=== PATIENT | male | born 1995 | race American Indian/Alaskan Native ===

== ENCOUNTER 2017-09-17 19:46 | Emergency (ER) | payer MEDICAID, OTHER ==
[2017-09-17 21:02] LABS: Basophils # (Auto) 0.1 K/mm3 (0.0-0.1); Basophils % (Auto) 0.8 % (0.0-1.8); Eosinophils # (Auto) 0.1 K/mm3 (0.0-0.4); Eosinophils % (Auto) 1.7 % (0.0-4.3); Hematocrit 39.2 % (35.5-45.6); Hemoglobin 12.9 gm/dl (11.8-15.2); Lymphocytes # (Auto) 2.1 K/mm3 (1.2-5.4); Lymphocytes % (Auto) 26.2 % (13.4-35.0); Mean Corpuscular HGB Conc 33 % (32-34); Mean Corpuscular Hemoglobin 29 pg (28-32); Mean Corpuscular Volume 88 fl (84-94); Monocytes # (Auto) 0.6 K/mm3 (0.0-0.8); Platelet Count 228 K/mm3 (140-440); Red Blood Count 4.44 M/mm3 (3.65-5.03)
[2017-09-17 21:26] LABS: Alanine Aminotransferase 11 units/L (7-56); Albumin 4.2 g/dL (3.9-5); BUN/Creatinine Ratio 9; Blood Urea Nitrogen 7 mg/dL (9-20); Calcium 8.8 mg/dL (8.4-10.2); Hemolysis Index 11
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
[2017-09-17 21:59] LABS: Bilirubin,Urine NEG (Negative); Blood,Urine SM (Negative); Color,Urine Yellow (Yellow); Protein,Urine <15 mg/dL mg/dL (Negative); RBC,Urine < 1.0 /HPF (0.0-6.0); Urobilinogen,Urine < 2.0 mg/dL (<2.0); WBC,Urine < 1.0 /HPF (0.0-6.0)
[2017-09-17 22:16] LABS: Amphetamine Screen,Urine PRESUMPTIVE NEGATIVE; Benzodiazepines Screen,Urine PRESUMPTIVE NEGATIVE; Cocaine Screen,Urine PRESUMPTIVE NEGATIVE; Methadone Screen,Urine PRESUMPTIVE NEGATIVE; Opiate Screen,Urine PRESUMPTIVE NEGATIVE
[2017-09-17 22:40] LABS: Cannabinoid Screen,Urine PRESUMPTIVE POSITIVE
--- NOTE | 2017-09-18 00:12 | Cat Scan Report ---
FINAL REPORT PROCEDURE: CT HEAD/BRAIN WO CON TECHNIQUE: Computerized tomography of the head was performed without contrast material. HISTORY: headache COMPARISON: No prior studies are available for comparison. FINDINGS: Skull and scalp: Normal. Paranasal sinuses: Slight opacification of the ethmoid sinuses. Ventricles and subarachnoid spaces: Normal. Cerebrum: No evidence of hemorrhage, acute infarction or mass . Cerebellum and brainstem: No evidence of hemorrhage, acute infarction or mass. Vasculature: Normal. Comments: None. IMPRESSION: There is no evidence of an acute intracranial process. Minimal sinusitis
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
[2017-09-18] MEDS: RisperDAL PO SCH (23:26)
--- NOTE | 2017-09-19 12:06 | Progress Note ---
Subjective - Reason for Consult Consult date: 09/19/17 Reason for consult: Psychiatry Follow-up - Chief Complaint Chief complaint: "What " 22 year old BM who presents to [facility]- we've been asked to see him for a mental health eval. Today the patient is calm, but disorganized during the assessment. He could not say why he was brought to the ER. He denies exposing himself per the record. He is smiling intermittently and pacing during the interview, possibly responding to some type of stimuli. He denies SI/HI's and AVH's. He denies any side effects of his medication. Mental Status Exam - Vital signs Last Vital Signs Temp 98.3 F 09/19/17 10:46 Pulse 103 H 09/19/17 10:46 Resp 16 09/19/17 10:46 BP 117/69 09/19/17 10:46 Pulse Ox 98 09/19/17 10:46 - Exam Narrative exam: MSE: Appearance: calm, disheveled Behavior: regular eye contact Speech: regular rate and tone Mood: "okay" Affect: congruent to mood Thought Process: not logical Thought Content: denies SI/HI's and AVH's Motor Activity: pacing Cognition: A/O x3 Insight: poor Judgment: poor Assessment and Plan Impression: Schizophrenia. Cannabis Use DO. Today the patient is calm, but disorganized during the assessment. The patient is experiencing perceptual disturbances. DDx: R/O Bipolar Do, R/O Substance Induced Psychosis Recommendation/Plan: Continue 1013 with placement to inpatient psy services. Continue Risperdal 1 mg PO HS for psychosis. Discussed possible metabolic side effects with patient reference Risperdal.
[2017-09-19 20:32] VITALS: BP 108/71
== END 2017-09-19 20:41 ==
LOC: ED 19:46 → EEVIPCON 19:46 → ED 09-19 20:41
DX: F23 Brief psychotic disorder (principal); F31.9 Bipolar disorder, unspecified; F17.200 Nicotine dependence, unspecified, uncomplicated; Z79.899 Other long term (current) drug therapy
CPT/HCPCS: 36415; 70450; 80053; 80307; 81001; 82140; 84443; 84484; 85025; 99285; G0480; 80320

== ENCOUNTER 2017-11-29 11:25 | Emergency (ER) | payer SELFPAY ==
[2017-11-29 12:01] LABS: Eosinophils # (Auto) 0.1 K/mm3 (0.0-0.4); Eosinophils % (Auto) 1.1 % (0.0-4.3); Hematocrit 43.9 % (35.5-45.6); Hemoglobin 14.5 gm/dl (11.8-15.2); Lymphocytes # (Auto) 1.4 K/mm3 (1.2-5.4); Lymphocytes % (Auto) 31.9 % (13.4-35.0); Mean Corpuscular HGB Conc 33 % (32-34); Mean Corpuscular Hemoglobin 30 pg (28-32); Mean Corpuscular Volume 89 fl (84-94); Monocytes # (Auto) 0.5 K/mm3 (0.0-0.8); Monocytes % (Auto) 10.1 % (0.0-7.3); Platelet Count 242 K/mm3 (140-440); Red Blood Count 4.93 M/mm3 (3.65-5.03); Red Cell Distribution Width 14.4 % (13.2-15.2)
[2017-11-29 12:10] LABS: BUN/Creatinine Ratio 7; Blood Urea Nitrogen 8 mg/dL (9-20); Calcium 8.9 mg/dL (8.4-10.2); Hemolysis Index 3
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
[2017-11-29 12:49] LABS: Bilirubin,Urine NEG (Negative); Blood,Urine NEG (Negative); Color,Urine Yellow (Yellow); Protein,Urine <15 mg/dL mg/dL (Negative); Urobilinogen,Urine < 2.0 mg/dL (<2.0)
[2017-11-29 12:50] LABS: WBC,Urine < 1.0 /HPF (0.0-6.0)
[2017-11-29 12:57] LABS: Amphetamine Screen,Urine PRESUMPTIVE NEGATIVE; Benzodiazepines Screen,Urine PRESUMPTIVE NEGATIVE; Cocaine Screen,Urine PRESUMPTIVE NEGATIVE; Methadone Screen,Urine PRESUMPTIVE NEGATIVE; Opiate Screen,Urine PRESUMPTIVE NEGATIVE
[2017-11-29 13:17] LABS: Cannabinoid Screen,Urine PRESUMPTIVE POSITIVE
[2017-11-29] MEDS ORDERED: ALUM-MAG HYDROX-SIMETH 200-200-20MG/5ML PO PRN (19:46)
[2017-11-29] MEDS ORDERED: TYLENOL PO PRN (19:46)
[2017-11-29] MEDS ORDERED: MILK OF MAGNESIA PO PRN (19:46)
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
[2017-11-30] MEDS: COGENTIN PO SCH (22:15)
[2017-11-30] MEDS: RisperDAL PO SCH (23:06)
[2017-12-01] MEDS: RisperDAL PO SCH (22:29)
[2017-12-01] MEDS: COGENTIN PO SCH (22:30)
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
[2017-12-02] MEDS ORDERED: HALDOL ONE (16:29)
[2017-12-02] MEDS ORDERED: HALDOL IM ONE (16:31)
[2017-12-02] MEDS: RisperDAL PO SCH (22:00)
[2017-12-02] MEDS: COGENTIN PO SCH (22:19)
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
[2017-12-03] MEDS: COGENTIN PO SCH (22:13)
[2017-12-03] MEDS: RisperDAL PO SCH (22:13)
[2017-12-04 11:13] VITALS: BP 103/64
== END 2017-12-04 11:45 ==
LOC: EEVIPCON 11:25 → ED 11:25
DX: F20.0 Paranoid schizophrenia (principal); F17.200 Nicotine dependence, unspecified, uncomplicated; F12.10 Cannabis abuse, uncomplicated; Z79.899 Other long term (current) drug therapy
CPT/HCPCS: 36415; 80048; 80307; 81001; 85025; 96372; 99285; G0480; J1630; 80320

== ENCOUNTER 2018-01-13 19:28 | Emergency (ER) | payer SELFPAY ==
[2018-01-13 19:36] VITALS: BP 113/67
[2018-01-13 20:24] LABS: Basophils % (Auto) 0.7 % (0.0-1.8); Eosinophils # (Auto) 0.2 K/mm3 (0.0-0.4); Eosinophils % (Auto) 3.3 % (0.0-4.3); Hematocrit 40.8 % (35.5-45.6); Hemoglobin 14.4 gm/dl (11.8-15.2); Lymphocytes # (Auto) 1.8 K/mm3 (1.2-5.4); Lymphocytes % (Auto) 39.6 % (13.4-35.0); Mean Corpuscular HGB Conc 35 % (32-34); Mean Corpuscular Hemoglobin 31 pg (28-32); Mean Corpuscular Volume 88 fl (84-94); Monocytes # (Auto) 0.5 K/mm3 (0.0-0.8); Monocytes % (Auto) 11.2 % (0.0-7.3); Platelet Count 209 K/mm3 (140-440); Red Blood Count 4.66 M/mm3 (3.65-5.03)
[2018-01-13 20:37] LABS: BUN/Creatinine Ratio 9; Blood Urea Nitrogen 11 mg/dL (9-20); Calcium 9.3 mg/dL (8.4-10.2); Hemolysis Index 10
[2018-01-13 23:14] LABS: Bilirubin,Urine NEG (Negative); Blood,Urine NEG (Negative); Calcium Oxalate Crystals,Urine 3+; Color,Urine Yellow (Yellow); Mucus,Urine 1+ /HPF; WBC,Urine < 1.0 /HPF (0.0-6.0)
[2018-01-13 23:24] LABS: Benzodiazepines Screen,Urine PRESUMPTIVE NEGATIVE; Cannabinoid Screen,Urine PRESUMPTIVE NEGATIVE; Cocaine Screen,Urine PRESUMPTIVE NEGATIVE; Methadone Screen,Urine PRESUMPTIVE NEGATIVE; Opiate Screen,Urine PRESUMPTIVE NEGATIVE
[2018-01-13 23:37] LABS: Amphetamine Screen,Urine PRESUMPTIVE POSITIVE
== END 2018-01-14 01:00 | disposition left against medical advice (07) ==
LOC: ED 19:28
DX: F20.9 Schizophrenia, unspecified (principal); Z79.899 Other long term (current) drug therapy; Z53.21 Procedure and treatment not carried out due to patient leaving prior to being seen by health care provider
CPT/HCPCS: 36415; 80048; 80307; 81001; 85025; G0480; 80320

== ENCOUNTER 2018-01-16 11:18 | Emergency (ER) | payer SELFPAY ==
[2018-01-16 11:52] LABS: Hematocrit 43.3 % (35.5-45.6); Hemoglobin 14.9 gm/dl (11.8-15.2); Mean Corpuscular HGB Conc 34 % (32-34); Mean Corpuscular Hemoglobin 30 pg (28-32); Mean Corpuscular Volume 88 fl (84-94); Platelet Count 220 K/mm3 (140-440); Red Blood Count 4.93 M/mm3 (3.65-5.03); Red Cell Distribution Width 13.6 % (13.2-15.2)
[2018-01-16 11:55] LABS: Bilirubin,Urine NEG (Negative); Blood,Urine NEG (Negative); Color,Urine Yellow (Yellow); Mucus,Urine 1+ /HPF; Protein,Urine <15 mg/dL mg/dL (Negative); WBC,Urine < 1.0 /HPF (0.0-6.0)
[2018-01-16 12:00] LABS: Lymphocytes % (Auto) 25.6 % (13.4-35.0); Monocytes % (Auto) 8.4 % (0.0-7.3)
[2018-01-16 12:01] LABS: Basophils % (Auto) 0.4 % (0.0-1.8); Eosinophils # (Auto) 0.1 K/mm3 (0.0-0.4); Eosinophils % (Auto) 1.4 % (0.0-4.3); Lymphocytes # (Auto) 1.2 K/mm3 (1.2-5.4); Monocytes # (Auto) 0.4 K/mm3 (0.0-0.8)
[2018-01-16 12:04] LABS: Amphetamine Screen,Urine PRESUMPTIVE NEGATIVE; Benzodiazepines Screen,Urine PRESUMPTIVE NEGATIVE; Cocaine Screen,Urine PRESUMPTIVE NEGATIVE; Methadone Screen,Urine PRESUMPTIVE NEGATIVE; Opiate Screen,Urine PRESUMPTIVE NEGATIVE
[2018-01-16 12:08] LABS: BUN/Creatinine Ratio 9; Blood Urea Nitrogen 10 mg/dL (9-20); Calcium 9.3 mg/dL (8.4-10.2); Hemolysis Index 12
[2018-01-16 12:19] LABS: Cannabinoid Screen,Urine PRESUMPTIVE POSITIVE
[2018-01-16] MEDS ORDERED: BENADRYL ONE (15:42)
[2018-01-16] MEDS ORDERED: PEPCID IV ONE ×2 (15:43→15:56)
[2018-01-16] MEDS ORDERED: DECADRON ONE (15:43)
[2018-01-16] MEDS ORDERED: BENADRYL IV ONE ×2 (15:56→18:38)
[2018-01-16] MEDS ORDERED: DECADRON IV ONE ×2 (15:56→18:38)
--- NOTE | 2018-01-16 19:08 | Emergency Department Report ---
ED Psych HPI - General Chief Complaint: Psych Stated Complaint: ELIZABETH EVEMILIA Time Seen by Provider: 01/16/18 15:48 Source: patient Mode of arrival: Ambulatory - History of Present Illness Initial Comments: This is a 22-year-old male with previous disposition to [facility] in November from here. Per the psychiatric nurse specialist: Impression: Schizophrenia, Paranoid Type. Cannabis Use DO. Today the patient is calm during the assessment. The patient minimized his actions. DDx: R/O Bipolar DO with psychosis, R/O Substance Induced Psychosis Today he again is brought here by his mother. His mother states that she found him hovering over her. He has been threatening siblings. He has been acting paranoid. In addition he has the onset of unexplained urticaria today. He is not on any new medications. He's not had any unusual foods. He has not had this problem prior. Patient himself is poorly communicative. He denies any difficulty in breathing. He is itching secondary to his hives. He cannot tell me if he has a precipitating agent. He does not really want to answer questions and is withdrawn. History of same: Yes Quality: intermittent - Related Data Home Medications Medication Instructions Recorded Confirmed Last Taken No Known Home Medications [No 09/18/17 11/29/17 Unknown Reported Home Medications] Allergies Allergy/AdvReac Type Severity Reaction Status Date / Time No Known Allergies Allergy Verified 11/29/17 11:31 ED Review of Systems ROS: Stated complaint: ELIZABETH JACOBO Other details as noted in HPI Comment: Unobtainable due to pts medical conditions (but the patient has no active complaints other than itching) ED Past Medical Hx - Past Medical History Hx Psychiatric Treatment: Yes Additional medical history: schziophrenia - Surgical History Past Surgical History?: No - Social History Smoking Status: Current Every Day Smoker Substance Use Type: None - Medications Home Medications: Home Medications Medication Instructions Recorded Confirmed Last Taken Type No Known Home Medications [No 09/18/17 11/29/17 Unknown History Reported Home Medications] ED Physical Exam - General Limitations: No Limitations General appearance: alert, in no apparent distress - Head Head exam: Present: atraumatic, normocephalic - Eye Eye exam: Present: normal appearance, PERRL, EOMI. Absent: scleral icterus - ENT ENT exam: Present: normal exam, normal orophraynx (no evidence of airway edema) , mucous membranes moist, other (periorbital edema) - Neck Neck exam: Present: normal inspection. Absent: tenderness, meningismus - Respiratory Respiratory exam: Present: normal lung sounds bilaterally. Absent: respiratory distress - Cardiovascular Cardiovascular Exam: Present: regular rate, normal rhythm. Absent: systolic murmur, diastolic murmur, rubs, gallop - GI/Abdominal GI/Abdominal exam: Present: soft, normal bowel sounds. Absent: distended, tenderness, guarding, rebound, rigid - Rectal Rectal exam: Present: deferred - Extremities Exam Extremities exam: Present: normal inspection - Back Exam Back exam: Present: normal inspection - Neurological Exam Neurological exam: Present: alert, oriented X3, CN II-XII intact. Absent: motor sensory deficit - Psychiatric Psychiatric exam: Present: normal mood, flat affect - Skin Skin exam: Present: warm, dry, intact, other (diffuse urticaria and periorbital edema. No facial edema no neck edema). Absent: rash ED Course Vital Signs 01/16/18 11:22 Temperature 98.4 F Pulse Rate 99 H Respiratory 15 Rate Blood Pressure 100/66 O2 Sat by Pulse 96 Oximetry - Reevaluation(s) Reevaluation #1: Patient was given Decadron Pepcid and Benadryl. He was observed. He never developed any signs of airway edema. However, his hives were persistent. He was given a note her dose of Decadron and Pepcid. He will be continued on oral medications after this. I will check on him presumably tomorrow unless urticaria resolved today. He is being evaluated by mental health for psychiatric placement. I will sign a 1013 form now. 01/16/18 19:02 ED Medical Decision Making - Lab Data Result diagrams: 01/16/18 11:39 01/16/18 11:39 Laboratory Results - last 24 hr 01/16/18 01/16/18 01/16/18 11:36 11:39 11:39 WBC RBC Hgb Hct MCV MCH MCHC RDW Plt Count Lymph % (Auto) Alger % (Auto) Eos % (Auto) Baso % (Auto) Lymph # Alger # Eos # Baso # Seg Neutrophils % Seg Neutrophils # Sodium Potassium Chloride Carbon Dioxide Anion Gap BUN Creatinine Estimated GFR BUN/Creatinine Ratio Glucose Calcium Urine Color Yellow Urine Turbidity Clear Urine pH 5.0 Ur Specific [place] 1.019 Urine Protein <15 mg/dl Urine Glucose (UA) Neg Urine Ketones Neg Urine Blood Neg Urine Nitrite Neg Urine Bilirubin Neg Urine Urobilinogen 2.0 Ur Leukocyte Esterase Neg Urine WBC (Auto) < 1.0 Urine RBC (Auto) 2.0 Urine Mucus 1+ Salicylates 2.3 L Urine Opiates Screen Presumptive negative Urine Methadone Screen Presumptive negative Acetaminophen Ur Barbiturates Screen Presumptive negative Ur Phencyclidine Scrn Presumptive negative Ur Amphetamines Screen Presumptive negative U Benzodiazepines Scrn Presumptive negative Urine Cocaine Screen Presumptive negative U Marijuana (THC) Screen Presumptive positive Drugs of Abuse Note Disclamer Plasma/Serum Alcohol 01/16/18 01/16/18 01/16/18 11:39 11:39 11:39 WBC RBC Hgb Hct MCV MCH MCHC RDW Plt Count Lymph % (Auto) Alger % (Auto) Eos % (Auto) Baso % (Auto) Lymph # Alger # Eos # Baso # Seg Neutrophils % Seg Neutrophils # Sodium 140 Potassium 4.1 Chloride 99.9 Carbon Dioxide 28 Anion Gap 16 BUN 10 Creatinine 1.1 Estimated GFR > 60 BUN/Creatinine Ratio 9 Glucose 133 H Calcium 9.3 Urine Color Urine Turbidity Urine pH Ur Specific [place] Urine Protein Urine Glucose (UA) Urine Ketones Urine Blood Urine Nitrite Urine Bilirubin Urine Urobilinogen Ur Leukocyte Esterase Urine WBC (Auto) Urine RBC (Auto) Urine Mucus Salicylates Urine Opiates Screen Urine Methadone Screen Acetaminophen < 5.0 L Ur Barbiturates Screen Ur Phencyclidine Scrn Ur Amphetamines Screen U Benzodiazepines Scrn Urine Cocaine Screen U Marijuana (THC) Screen Drugs of Abuse Note Plasma/Serum Alcohol < 0.01 01/16/18 11:39 WBC 4.7 RBC 4.93 Hgb 14.9 Hct 43.3 MCV 88 MCH 30 MCHC 34 RDW 13.6 Plt Count 220 Lymph % (Auto) 25.6 Alger % (Auto) 8.4 H Eos % (Auto) 1.4 Baso % (Auto) 0.4 Lymph # 1.2 Alger # 0.4 Eos # 0.1 Baso # 0.0 Seg Neutrophils % 64.2 Seg Neutrophils # 3.0 Sodium Potassium Chloride Carbon Dioxide Anion Gap BUN Creatinine Estimated GFR BUN/Creatinine Ratio Glucose Calcium Urine Color Urine Turbidity Urine pH Ur Specific [place] Urine Protein Urine Glucose (UA) Urine Ketones Urine Blood Urine Nitrite Urine Bilirubin Urine Urobilinogen Ur Leukocyte Esterase Urine WBC (Auto) Urine RBC (Auto) Urine Mucus Salicylates Urine Opiates Screen Urine Methadone Screen Acetaminophen Ur Barbiturates Screen Ur Phencyclidine Scrn Ur Amphetamines Screen U Benzodiazepines Scrn Urine Cocaine Screen U Marijuana (THC) Screen Drugs of Abuse Note Plasma/Serum Alcohol Critical care attestation.: If time is entered above; I have spent that time in minutes in the direct care of this critically ill patient, excluding procedure time. ED Disposition Clinical Impression: Acute psychosis, Urticaria Disposition: DC/TX-65 PSY HOSP/PSY UNIT Is pt being admited?: No Does the pt Need Aspirin: No Condition: Stable Referrals: PRIMARY CARE, [Primary Care Provider] - 3-5 Days Time of Disposition: 19:08
[2018-01-16] MEDS ORDERED: ALUM-MAG HYDROX-SIMETH 200-200-20MG/5ML PO PRN (19:11)
[2018-01-16] MEDS ORDERED: TYLENOL PO PRN (19:11)
[2018-01-16] MEDS ORDERED: MILK OF MAGNESIA PO PRN (19:11)
[2018-01-16] MEDS: BENADRYL PO SCH (21:16)
[2018-01-17] MEDS: PEPCID PO SCH ×3 (02:09→22:07)
[2018-01-17] MEDS: BENADRYL PO SCH ×4 (02:09→22:05)
[2018-01-17] MEDS: GEODON PO SCH ×3 (05:47→22:05)
--- NOTE | 2018-01-17 13:30 | Consultation ---
History of Present Illness - Reason for Consult Consult date: 01/17/18 Reason for consult: Mental Health Evaluation Requesting physician: HARJIT WELDON - Chief Complaint Chief complaint: "I been working hard" - History of Present Psychiatric Illness 22 y.o. AA male presenting to the ER for bizarre behavior and making threats towards his family at his home. This patient is known to me. Today the patient is calm, but disorganized during the assessment. Per observation the patient's face is swollen. He denies a swollen tongue and SOB. Per the staff, the patient had some reaction while in the lobby of the hospital prior to being triage. He cannot elaborate what happened to his face when asked. His answer to all questions is "I was just working to stay busy." The patient is a poor historian at this time. No gestures of SI/HI's. Medications and Allergies Allergies Allergy/AdvReac Type Severity Reaction Status Date / Time No Known Allergies Allergy Verified 11/29/17 11:31 Home Medications Medication Instructions Recorded Confirmed Last Taken Type No Known Home Medications [No 09/18/17 11/29/17 Unknown History Reported Home Medications] Active Meds: Active Medications Acetaminophen (Tylenol) 650 mg PO Q4HR PRN PRN Reason: Pain MILD(1-3)/Fever >100.5/MEADE Al Hydrox/Mg Hydrox/Simethicone (Alum-Mag Hydrox-Simeth [id number]/5ml) 30 ml PO Q4HR PRN PRN Reason: Indigestion Diphenhydramine HCl (Benadryl) 25 mg PO Q6H [facility] Last Admin: 01/17/18 09:41 Dose: 25 mg Famotidine (Pepcid) 20 mg PO BID [facility] Last Admin: 01/17/18 10:54 Dose: 20 mg Magnesium Hydroxide (Milk Of Magnesia) 30 ml PO Q12HR PRN PRN Reason: Constipation Ziprasidone (Geodon) 20 mg PO BID [facility] Last Admin: 01/17/18 10:54 Dose: 20 mg Past psychiatric history - Past Medical History Past Medical History: other (Unabel to obtain) Past Surgical History: Other (Unable to obtain ) - past Psychiatric treatment and history psychiatric treatment history: Several inpatient psy services. Unable to obtain a fam psy hx. - Social History Social history: lives with family Mental Status Exam - Vital signs Last Vital Signs Temp 98.6 F 01/17/18 07:57 Pulse 81 01/17/18 07:57 Resp 20 01/17/18 07:57 BP 106/68 01/17/18 07:57 Pulse Ox 97 01/17/18 07:57 - Exam Narrative exam: MSE: Appearance: calm Behavior: poor eye contact Speech: regular rate and tone Mood: unable to assess Affect: flat Thought Process: disorganized Thought Content: no gestures of SI/HI's Motor Activity: sitting up in bed Cognition: A/O x 3 Insight: poor Judgment: poor Results Result Diagrams: 01/16/18 11:39 01/16/18 11:39 All other labs normal. Assessment and Plan Assessment and plan: Impression: Hx of Schizophrenia, Paranoid. Today the patient is calm, but disorganized during the assessment. The patient face is swollen at this time. The patient cannot elaborate what cause this reaction. Medical: Urticaria DDx: R/O Bipolar DO with psychosis, R/O Substance Induced Psychosis Recommendation/Plan: Continue 1013 with placement to inpatient psy services once medically clear. Continue Geodon 20 mg PO BID for psychosis. Attemped to discuss possible metabolic side effects of Geodon with patient.
[2018-01-18] MEDS: BENADRYL PO SCH ×4 (02:28→21:17)
[2018-01-18] MEDS: GEODON PO SCH ×2 (10:48→22:02)
[2018-01-18] MEDS: PEPCID PO SCH ×2 (10:48→22:01)
--- NOTE | 2018-01-18 15:22 | Progress Note ---
Subjective - Reason for Consult Consult date: 01/18/18 Reason for consult: Psychiatric Follow-up Evaluation - Chief Complaint Chief complaint: "Fine" Patient is a 22 year old male who presents to the ER for bizarre behavior and making threats towards his family at his home. This patient is known to me. Today the patient is calm, but disorganized during the assessment. Poor hygiene is noted, malodorous. Patient is guarded. Thought content is impoverished. Poor eye contact.He continues to exhibit bizarre behavior. He reports good energy, appetite, and sleep. During the assessment patient tells provider "I'm a rapper." He attempts to minimize psychosis, although it is evident. Mental Status Exam - Vital signs Last Vital Signs Temp 97.4 F L 01/18/18 11:00 Pulse 78 01/18/18 11:00 Resp 18 01/18/18 14:25 BP 92/51 01/18/18 11:00 Pulse Ox 98 01/18/18 14:25 - Exam Narrative exam: Mental Status Exam General Appearance: Causally Dressed-hospital gown Eye Contact: Poor Orientation: Alert and oriented x 3 ( person, place, and situation) Attitude/Behavior: Evasive, guarded Sensorium: Distracted Psychomotor & Musculoskeletal Activity: Laying in bed Mood: Anxious Affect: Constricted, flat Speech/Language: Regular rate and tone Thought Processes: Disorganized Thought Content: Impoverished. 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 Concentration/Attention: Impaired Suicidal Ideations/Plan: Patient denies. " No" Homicidal Ideations/Plan: Patient denies. "No" Judgment: Poor Insight: Poor Assessment and Plan Impression: Hx of Schizophrenia, Paranoid. Today the patient is calm, but disorganized during the assessment. The patient face is swollen at this time. The patient cannot elaborate what cause this reaction. Patient continues to exhibit bizarre behavior. Patient is guarded with impoverished thought content. Psychosis is evident although patient attempts to minimize. Medical: Urticaria DDx: R/O Bipolar DO with psychosis, R/O Substance Induced Psychosis Recommendation/Plan: 1. Continue 1013 with placement to inpatient psychiatric services once medically clear. 2. Continue Geodon 20 mg PO BID for psychosis. Attemped to discuss possible metabolic side effects of Geodon with patient. 3. Will monitor mood, psychosis, sleep, appetite, compliance, and side effects.
[2018-01-19] MEDS: BENADRYL PO SCH ×4 (01:54→22:33)
[2018-01-19] MEDS: PEPCID PO SCH ×2 (11:40→22:34)
[2018-01-19] MEDS: GEODON PO SCH ×2 (11:40→22:33)
[2018-01-20] MEDS: BENADRYL PO SCH ×4 (04:48→22:16)
[2018-01-20] MEDS: PEPCID PO SCH ×2 (10:20→22:16)
--- NOTE | 2018-01-20 10:54 | Progress Note ---
Subjective - Reason for Consult Consult date: 01/20/18 Reason for consult: Psychiatry Follow-up - Chief Complaint Chief complaint: "What" Patient is a 22 year old male who presents to the ER for bizarre behavior and making threats towards his family at his home. This patient is known to me. Today the patient is calm, but disorganized during the assessment. The patient's hygiene is poor. He was asked about his appearance he stated, "I am okay." He continue to exhibit bizarre behavior during interviews. He denies SI/HI's and VH's. He would not confirm or deny AH's. No indications of side effects of his medication. Mental Status Exam - Vital signs Last Vital Signs Temp 97.5 F L 01/19/18 20:00 Pulse 61 01/19/18 20:00 Resp 20 01/19/18 20:00 BP 115/67 01/19/18 20:00 Pulse Ox 99 01/19/18 20:00 - Exam Narrative exam: MSE: Appearance: calm, disheveled, malodorous Behavior: poor eye contact Speech: regular rate and tone Mood: "okay" Affect: flat Thought Process: disorganized Thought Content: denies SI/HI's and VH's Motor Activity: sitting up in bed Cognition: A/O x 3 Insight: poor Judgment: poor Assessment and Plan Impression: Hx of Schizophrenia, Paranoid. Cannabis Use DO. Today the patient is calm, but disorganized during the assessment. Medical: Urticaria DDx: R/O Bipolar DO with psychosis, R/O Substance Induced Psychosis Recommendation/Plan: Continue 1013 with placement to inpatient psy services. Increase Geodon to 40 mg PO BID for psychosis. Attemped to discuss possible metabolic side effects of Geodon with patient.
[2018-01-20] MEDS ORDERED: GEODON PO SCH (11:00)
[2018-01-20] MEDS: GEODON PO SCH ×4 (11:35→22:16)
[2018-01-21] MEDS: BENADRYL PO SCH ×4 (02:50→21:40)
[2018-01-21] MEDS: GEODON PO SCH ×2 (09:45→23:47)
[2018-01-21] MEDS: PEPCID PO SCH ×2 (09:45→22:00)
--- NOTE | 2018-01-21 12:40 | Progress Note ---
Subjective - Reason for Consult Consult date: 01/21/18 Reason for consult: Psychiatry Follow-up - Chief Complaint Chief complaint: "I am well" Patient is a 22 year old male who presents to the ER for bizarre behavior and making threats towards his family at his home. This patient is known to me. Today the patient is calm, but still disorganized during the assessment. He was observed talking to himself and smiling upon my arrival to his room. His answers to questions were not logical. Per the notes, the patient tried to elope earlier today. He denies SI/HI's and VH's. He still will not confirm or deny AH's. No indications of side effects of his medication. Mental Status Exam - Vital signs Last Vital Signs Temp 97.7 F 01/21/18 08:47 Pulse 93 H 01/21/18 08:47 Resp 16 01/21/18 08:47 BP 135/89 01/21/18 08:47 Pulse Ox 98 01/21/18 08:47 - Exam Narrative exam: MSE: Appearance: calm, disheveled Behavior: poor eye contact Speech: regular rate and tone Mood: "okay" Affect: euphoric Thought Process: disorganized Thought Content: denies SI/HI's and VH's Motor Activity: sitting up in bed Cognition: A/O x 3 Insight: poor Judgment: poor Assessment and Plan Impression: Hx of Schizophrenia, Paranoid. Cannabis Use DO. Today the patient is calm, but disorganized during the assessment. Medical: Urticaria DDx: R/O Bipolar DO with psychosis, R/O Substance Induced Psychosis Recommendation/Plan: Continue 1013 with placement to inpatient psy services. Continue Geodon to 40 mg PO BID for psychosis. Attemped to discuss possible metabolic side effects of Geodon with patient.
[2018-01-22] MEDS: BENADRYL PO SCH ×4 (05:41→22:31)
[2018-01-22] MEDS: PEPCID PO SCH ×2 (10:25→22:31)
[2018-01-22] MEDS: GEODON PO SCH ×2 (10:25→22:31)
[2018-01-23] MEDS: BENADRYL PO SCH ×3 (10:31→23:52)
[2018-01-23] MEDS: GEODON PO SCH ×2 (10:31→23:52)
[2018-01-23] MEDS: PEPCID PO SCH ×2 (12:00→23:52)
--- NOTE | 2018-01-23 13:51 | Progress Note ---
Subjective - Reason for Consult Consult date: 01/23/18 Reason for consult: Psychiatry Follow-up - Chief Complaint Chief complaint: "What do you want" Patient is a 22 year old male who presents to the ER for bizarre behavior and making threats towards his family at his home. This patient is known to me. Today the patient is calm, but still disorganized during the assessment. He stated that he was "okay" and don't need to see a "doctor." His answers to most questions are not logical. He denies SI/HI's and VH's. He was asked about hearing voices, he refused to answer. No indications of side effects of his medication. Mental Status Exam - Vital signs Last Vital Signs Temp 97.7 F 01/23/18 10:00 Pulse 77 01/23/18 10:00 Resp 20 01/23/18 13:29 BP 129/91 01/23/18 10:00 Pulse Ox 98 01/23/18 13:29 - Exam Narrative exam: MSE: Appearance: calm, disheveled, malodorous Behavior: poor eye contact Speech: regular rate and tone Mood: "okay" Affect: euphoric Thought Process: disorganized Thought Content: denies SI/HI's and AVH's Motor Activity: sitting up in bed Cognition: A/O x 3 Insight: poor Judgment: poor Assessment and Plan Impression: Hx of Schizophrenia, Paranoid. Cannabis Use DO. Today the patient is calm, but disorganized during the assessment. Medical: Urticaria DDx: R/O Bipolar DO with psychosis, R/O Substance Induced Psychosis Recommendation/Plan: Continue 1013 with placement to [facility] pending transport time. Continue Geodon to 40 mg PO BID for psychosis. Attempted to discuss possible metabolic side effects of Geodon with patient.
[2018-01-24] MEDS: BENADRYL PO SCH ×2 (03:03→11:17)
[2018-01-24] MEDS: PEPCID PO SCH (11:17)
[2018-01-24] MEDS: GEODON PO SCH (11:17)
--- NOTE | 2018-01-24 12:50 | Progress Note ---
Subjective - Reason for Consult Consult date: 01/24/18 Reason for consult: Psychiatry Follow-up - Chief Complaint Chief complaint: "When will I go to a hospital" Patient is a 22 year old male who presents to the ER for bizarre behavior and making threats towards his family at his home. This patient is known to me. Today the patient is calm, but still disorganized during the assessment. He wanted to know when will be transferred to a hospital. His answers to most questions were not logical. He denies SI/HI's and AVH's. No indications of side effects of his medication. Mental Status Exam - Vital signs Last Vital Signs Temp 97.9 F 01/24/18 02:05 Pulse 82 01/24/18 02:05 Resp 20 01/24/18 02:05 BP 109/64 01/24/18 02:05 Pulse Ox 98 01/24/18 02:05 - Exam Narrative exam: MSE: Appearance: calm, disheveled Behavior: poor eye contact Speech: regular rate and tone Mood: "okay" Affect: euphoric Thought Process: disorganized Thought Content: denies SI/HI's and AVH's Motor Activity: sitting up in bed Cognition: A/O x 3 Insight: poor Judgment: poor Assessment and Plan Impression: Hx of Schizophrenia, Paranoid. Cannabis Use DO. Today the patient is calm, but disorganized during the assessment. Medical: Urticaria DDx: R/O Bipolar DO with psychosis, R/O Substance Induced Psychosis Recommendation/Plan: Continue 1013 with placement to [facility] today. Continue Geodon to 40 mg PO BID for psychosis. Attempted to discuss possible metabolic side effects of Geodon with patient.
[2018-01-24 17:09] VITALS: BP 115/75
== END 2018-01-24 17:21 ==
LOC: EEVIPCON 11:18 → ED 11:18
DX: F23 Brief psychotic disorder (principal); L50.9 Urticaria, unspecified; F17.200 Nicotine dependence, unspecified, uncomplicated; F12.10 Cannabis abuse, uncomplicated; F60.0 Paranoid personality disorder; Z79.899 Other long term (current) drug therapy
CPT/HCPCS: 36415; 80048; 80307; 81001; 85025; 96374; 96375; 96376; 99285; G0480; J1100; J1200; 80320